=== PATIENT | female | born 1970 | race Caucasian/White ===

== ENCOUNTER 2018-01-31 12:46 | Emergency (ER) | payer OTHER ==
[~2018-01-31] VITALS: Ht 157.5 cm; Wt 113.4 kg
[2018-01-31 14:16] LABS: Source, Urine Clean Catch
[2018-01-31 14:19] LABS: Appearance, Urine Hazy (Clear); Bilirubin, Urine Neg (Neg); Blood, Urine 5+ (Neg); Color, Urine Yellow (P-Yellow); Glucose Qualitative, Urine Neg (Neg); Ketones, Urine 1+ (Neg); Leukocyte Esterase, Urine 1+ (Neg); Nitrite, Urine Neg (Neg); Protein, Urine 1+ (Neg); Urobilinogen, Urine NORM (Normal)
[2018-01-31 14:28] LABS: BASOPHILS ABSOLUTE AUTO 0.08 K/mm3 (0.00-0.23); BASOPHILS PERCENT AUTO 1 % (0-2); EOSINOPHILS ABSOLUTE AUTO 0.15 K/mm3 (0.00-0.68); EOSINOPHILS PERCENT AUTO 1 % (0-6); Hematocrit 48.2 % (33.0-51.0); Hemoglobin 16.9 g/dL (11.5-16.0); IMMATURE GRAN ABSOLUTE AUTO 0.04 K/mm3 (0.00-0.10); IMMATURE GRAN PERCENT AUTO 0 % (0-1); LYMPHOCYTES ABSOLUTE AUTO 1.35 K/mm3 (0.84-5.20); LYMPHOCYTES PERCENT AUTO 13 % (21-46); MONOCYTES ABSOLUTE AUTO 0.62 K/mm3 (0.16-1.47); MONOCYTES PERCENT AUTO 6 % (4-13); Mean Corpuscular HGB 32.4 pg (26.0-34.0); Mean Corpuscular HGB Conc 35.1 g/dL (31.5-36.5); Mean Corpuscular Volume 93 fL (80-100); Mean Platelet Volume 9.8 fL (9.1-12.4); NEUTROPHILS ABSOLUTE AUTO 8.39 K/mm3 (1.96-9.15); NEUTROPHILS PERCENT AUTO 79 % (41-73); Platelet Count 306 K/mm3 (150-400); RDW Standard Deviation 43.8 fL (35.1-46.3); Red Blood Cell Count 5.21 M/mm3 (3.80-5.20); White Blood Cell Count 10.63 K/mm3 (4.00-11.30)
[2018-01-31 14:30] LABS: Squamous Epithelial Cells Few /hpf (Few); White Blood Cells, Urine 25-50 /hpf (0-5)
[2018-01-31 14:31] LABS: Bacteria Few /hpf
[2018-01-31 14:34] LABS: U Amphetamine Screen Not Detected; U Barbituate Screen Not Detected; U Benzodiazapine Screen Not Detected; U Buprenorphine Screen Not Detected; U Cannabinoids Screen Not Detected; U Cocaine Screen Not Detected; U Methadone Screen Not Detected; U Methamphetamine Screen Not Detected; U Opiates Screen Not Detected; U Oxycodone Screen Not Detected; U Phencyclidine Screen Not Detected; U Propoxyphene Screen Not Detected
[2018-01-31 14:55] LABS: Salicylate 3.5 mg/dL (2.8-20.0); Thyroxine (T4) 8.9 ug/dL (4.8-13.9)
[2018-01-31 14:56] LABS: Ethanol (Alcohol), Blood, Med <3 mg/dL
[2018-01-31 15:00] LABS: Acetaminophen, Random <2.0 ug/mL (10.0-30.0); Alanine Aminotransfer (ALT/SGP 48 U/L (12-78); Albumin, Blood 4.1 g/dL (3.4-5.0); Alk Phos 88 U/L (50-136); Anion Gap 9 mmol/L (6-16); Aspartate Aminotrans (AST/SGOT 29 U/L (12-37); Bilirubin, Total 0.3 mg/dL (0.1-1.0); Blood Urea Nitrogen 17 mg/dL (8-24); Bun/Creatinine Ratio 18.2 (12.0-20.0); CO2, Blood 26 mmol/L (21-32); Calcium, Blood 8.5 mg/dL (8.5-10.1); Chloride, Blood 102 mmol/L (98-108); Creatinine, Blood 0.93 mg/dL (0.40-1.00); Globulin, Blood 4.3 g/dL (2.2-4.0); Glomerular Filtration Rate >60 (60-); Glucose, Blood 122 mg/dL (70-99); Potassium, Blood 3.7 mmol/L (3.5-5.5); Sodium, Blood 137 mmol/L (136-145); Total Protein, Blood 8.4 g/dL (6.4-8.2)
[2018-01-31] MEDS ORDERED: Xanax0.5 MG PO (16:41)
== END 2018-01-31 17:42 | disposition home or self-care (01) ==
LOC: ER 12:46
PROVIDERS: Emergency Medicine
DX: F41.9 Anxiety disorder, unspecified (principal)
CPT/HCPCS: 36415; 80053; 81001; 81025; 84436; 84443; 85025; 87086; 93005; 93010; 99283-25; G0480

== ENCOUNTER 2018-02-11 02:41 | Emergency (ER) | payer OTHER ==
[~2018-02-11 02:41] MED LIST: Xanax0.5 MG PO
[2018-02-13] MEDS ORDERED: Synthroid/Levo0.2 MG (15:41)
[2018-02-13] MEDS ORDERED: Ativan1 MG SL (17:13)
== END 2018-02-11 03:46 | disposition left against medical advice (07) ==
LOC: ER 02:41
DX: Z53.21 Procedure and treatment not carried out due to patient leaving prior to being seen by health care provider (principal)

== ENCOUNTER 2018-11-01 02:19 | Emergency (ER) | payer OTHER ==
[~2018-11-01] VITALS: Ht 157.5 cm; Wt 117.0 kg
[~2018-11-01 02:19] MED LIST changes: +Ativan1 MG SL; +Synthroid/Levo0.2 MG
[2018-11-01 03:35] LABS: BASOPHILS ABSOLUTE AUTO 0.06 K/mm3 (0.00-0.23); BASOPHILS PERCENT AUTO 1 % (0-2); EOSINOPHILS ABSOLUTE AUTO 0.15 K/mm3 (0.00-0.68); EOSINOPHILS PERCENT AUTO 2 % (0-6); Hematocrit 45.5 % (33.0-51.0); Hemoglobin 15.6 g/dL (11.5-16.0); IMMATURE GRAN ABSOLUTE AUTO 0.03 K/mm3 (0.00-0.10); IMMATURE GRAN PERCENT AUTO 0 % (0-1); LYMPHOCYTES ABSOLUTE AUTO 1.17 K/mm3 (0.84-5.20); LYMPHOCYTES PERCENT AUTO 13 % (21-46); MONOCYTES ABSOLUTE AUTO 0.62 K/mm3 (0.16-1.47); MONOCYTES PERCENT AUTO 7 % (4-13); Mean Corpuscular HGB 31.1 pg (26.0-34.0); Mean Corpuscular HGB Conc 34.3 g/dL (31.5-36.5); Mean Corpuscular Volume 91 fL (80-100); Mean Platelet Volume 9.9 fL (9.1-12.4); NEUTROPHILS ABSOLUTE AUTO 7.15 K/mm3 (1.96-9.15); NEUTROPHILS PERCENT AUTO 78 % (41-73); Platelet Count 257 K/mm3 (150-400); RDW Coefficient Variation 13.2 % (11.7-14.2); RDW Standard Deviation 43.3 fL (35.1-46.3); Red Blood Cell Count 5.02 M/mm3 (3.80-5.20); White Blood Cell Count 9.18 K/mm3 (4.00-11.30)
[2018-11-01 03:57] LABS: Alanine Aminotransfer (ALT/SGP 31 U/L (12-78); Albumin, Blood 3.6 g/dL (3.4-5.0); Alk Phos 88 U/L (50-136); Anion Gap 8 mmol/L (6-16); Aspartate Aminotrans (AST/SGOT 20 U/L (12-37); Bilirubin, Total 0.2 mg/dL (0.1-1.0); Blood Urea Nitrogen 11 mg/dL (8-24); Bun/Creatinine Ratio 20.8 (12.0-20.0); CO2, Blood 26 mmol/L (21-32); Calcium, Blood 8.8 mg/dL (8.5-10.1); Chloride, Blood 103 mmol/L (98-108); Creatinine, Blood 0.53 mg/dL (0.40-1.00); Free Thyroxine 1.11 ng/dL (0.70-1.60); Globulin, Blood 3.7 g/dL (2.2-4.0); Glomerular Filtration Rate >60 (60-); Glucose, Blood 144 mg/dL (70-99); Potassium, Blood 3.6 mmol/L (3.5-5.5); Sodium, Blood 137 mmol/L (136-145); Total Protein, Blood 7.3 g/dL (6.4-8.2)
== END 2018-11-01 05:25 | disposition home or self-care (01) ==
LOC: ER 02:19
PROVIDERS: Emergency Medicine
DX: F41.9 Anxiety disorder, unspecified (principal); Z79.899 Other long term (current) drug therapy; E03.9 Hypothyroidism, unspecified
CPT/HCPCS: 36415; 80053; 84439; 84443; 85025; 99283

== ENCOUNTER 2022-09-11 10:43 | Day surgery (SDC) | payer OTHER ==
[~2022-09-11] VITALS: Ht 157.5 cm; Wt 123.2 kg
[2022-09-11] MEDS ORDERED: LEVSOD100 (11:26)
[2022-09-11] MEDS ORDERED: METO50ER PO (11:30)
[2022-09-11] MEDS ORDERED: METFORMIN ER G500 MG PO (11:48)
[2022-09-11] MEDS ORDERED: METF500 PO (11:49)
[2022-09-11] MEDS ORDERED: POTA10T PO (11:49)
[2022-09-11] MEDS ORDERED: LOSARTAN-HCTZ1 EACH PO (11:50)
--- NOTE | 2022-09-11 12:45 | NUR ---
09/11/22 1245 CLAIRE MCKEON 0.05MG OF EPI VERIFIED AND ADDED TO 10MLS OF LIDOCAINE 2% TO CREATE A LOCAL SOLUTION OF LIDOCAINE 2% WITH EPI 1:200,000. 10MLS OF LIDOCAINE 2% WITH EPI INJECTED INTO LFOOT AT START OF CASE BEFORE STERILE PREP BY DR. SEE. 0.1MG OF EPI VERIFIED AND ADDED TO 20MLS OF ROPIVACAINE 0.5% TO CREATE A LOCAL SOLUTION OF ROPIVACAINE 0.5% WITH EPI 1:200,000. LOCAL POURED ONTO STERILE FIELD FOR USE DURING CASE.
--- NOTE | 2022-09-11 15:19 | NUR ---
09/11/22 1519 Brayden Bansal PT MAINTAINED O2 SATURATION OF 95-100% IN STEP DOWN WITH BREIF DROPS LOW 91-92%. PT'S O2 SATURATION RETURNED TO 95-100% SPONTANEOUSLY. SHE DENIED SYMPTOMS OF HYPOXIA, INCLUDING SHORTNESS OF BREATH AND DIZZINESS, AND NONE WERE OBSERVED. DR. SHELLEY WAS CONSULTED AND APPROVED DISCHARGE. PT EXPRESSED READINESS TO RETURN HOME. SHE REFUSED PAIN MEDICATION, INCLUDING TYLENOL.
== END 2022-09-11 14:55 | disposition home or self-care (01) ==
LOC: ORSCSDS 10:43
PROVIDERS: Podiatrist Foot & Ankle Surgery
PROC: 0JBR0ZZ Excision of Left Foot Subcutaneous Tissue and Fascia, Open Approach (ICD-10-PCS; principal; 2022-09-11 12:00)
PROC: 0QBP0ZZ Excision of Left Metatarsal, Open Approach (ICD-10-PCS; principal; 2022-09-11 12:00)
DX: M67.472 Ganglion, left ankle and foot (principal); M89.8X7 Other specified disorders of bone, ankle and foot; I10 Essential (primary) hypertension; E11.9 Type 2 diabetes mellitus without complications; F17.210 Nicotine dependence, cigarettes, uncomplicated; E66.01 Morbid (severe) obesity due to excess calories; Z68.42 Body mass index [BMI] 45.0-49.9, adult; Z79.84 Long term (current) use of oral hypoglycemic drugs; Z79.899 Other long term (current) drug therapy
CPT/HCPCS: 82947; J0171; J0690; J1100; J1885; J2001; J2250; J2405; J2704; J2795; J3010; J7120

== ENCOUNTER 2022-09-16 09:43 | Day surgery (SDC) | payer OTHER ==
[~2022-09-16] VITALS: Ht 157.5 cm; Wt 122.5 kg
[~2022-09-16 09:43] MED LIST changes: +LEVSOD100; +LOSARTAN-HCTZ1 EACH PO; +METF500 PO; +METFORMIN ER G500 MG PO; +METO50ER PO; +POTA10T PO
--- NOTE | 2022-09-16 10:20 | NUR ---
09/16/22 1020 Annika Juarez PT COMFORTABLE IN BED WITH PILLOW UNDER LEFT FOOT; BONE SPURS REMOVED ON LEFT FOOT 09/11/22. CALL LIGHT WITHIN REACH. BED IN LOWEST POSITION. SPOUSE QUEENIE AT BEDSIDE
[2022-09-16 11:44] VITALS: BP 122/84
== END 2022-09-16 12:12 | disposition home or self-care (01) ==
LOC: ORSCSDS 09:43
PROVIDERS: Orthopaedic Surgery
PROC: 01N54ZZ Release Median Nerve, Percutaneous Endoscopic Approach (ICD-10-PCS; principal; 2022-09-16 11:00)
DX: G56.03 Carpal tunnel syndrome, bilateral upper limbs (principal); E11.9 Type 2 diabetes mellitus without complications; I10 Essential (primary) hypertension; E03.9 Hypothyroidism, unspecified; F17.210 Nicotine dependence, cigarettes, uncomplicated; Z79.84 Long term (current) use of oral hypoglycemic drugs; Z79.899 Other long term (current) drug therapy
CPT/HCPCS: 82947; J2250; J7120